=== PATIENT | female | born 1955 | race Caucasian/White ===

== ENCOUNTER 2016-10-21 14:42 | Emergency (ER) | payer OTHER ==
[~2016-10-21 14:42] MED LIST: ASPIRIN EC81 M1 PO; BIAXIN250 MG PO; KEPPRA750 M1 PO; LIPITOR80 M1 PO; NORVASC5 M1 PO; PREDNISONE20 M1 PO; PROAIR HFA8.5 GM INH; ROBITUSSIN W/CO10 ML PO; TOPROL XL100 M1 PO; TOPROL XL50 M1 PO; VIBRAMYCIN100 MG PO
[2016-10-21 14:56] VITALS: BP 162/93
--- NOTE | 2016-10-21 16:33 | ED INFLUENZA/URI COMPLAINT ---
History of Present Illness General Chief Complaint: General Adult Stated Complaint: R ARM,R LEG AND TORSO PAIN, ALSO HEAD COLD PER PT Source: patient, old records Exam Limitations: no limitations Vital Signs & Intake/Output Vital Signs & Intake/Output Vital Signs Date Time Temp Pulse Resp B/P Pulse O2 O2 Flow FiO2 Ox Delivery Rate 10/21 1456 97.1 111 16 162/93 95 Room Air Allergies Coded Allergies: MDX - Lisinopril (LISINOPRIL) (UNKNOWN 10/14/12) MDX - Peanuts (PEANUTS) (UNKNOWN 06/29/13) Reconcile Medications Albuterol Sulfate (Proair Hfa) 8.5 GM HFA.AER.AD 2 PUF INH Q4-6 PRN PRN WHEEZING Amlodipine Besylate (Norvasc) 5 MG TABLET 1 TAB PO DAILY HIGH BLOOD PRESSURE (Reported) Aspirin (Ecotrin*) 81 MG TABLET.DR 1 TAB PO BID HEART HEALTH (Reported) Atorvastatin Calcium (Lipitor) 80 MG TABLET 1 TAB PO DAILY HIGH CHOLESTROL ( Reported) Azithromycin (Zithromax) 250 MG TABLET 1 DP PO AD sinusitis 2 the first day followed by 1 for days 2-5 Clarithromycin (Biaxin) 250 MG TABLET 1 TAB PO BID PNA Doxycycline Hyclate (Vibramycin) 100 MG CAPSULE 1 CAP PO BID cellulitis Levetiracetam (Keppra) 750 MG TABLET 1 TAB PO BID SEIZURES (Reported) Metoprolol Succ XL (Toprol Xl) 50 MG TAB.ER.24H 1 TAB PO DAILY HIGH BLOOD PRESSURE (Reported) Metoprolol Succ XL (Toprol XL) 100 MG TAB.ER.24H 1 TAB PO DAILY HIGH BLOOD PRESSURE (Reported) Mometasone Furoate (Nasonex) 50 MCG SPRAY.PUMP 2 SPRAY NASB DAILY sinus Prednisone 20 MG TABLET 2 TAB PO D BRONCHITIS Robitussin AC (Guaifenesin-Codeine Syrup) 10 ML UDC 10 ML PO Q6P PRN COUGH Triage Note: TRIAGE; PT TO ED STATES SHE FEELS CONGESTED. STATES SHE FEELS ALL CLOGGED IN HER HEAD. IS ALSO HAVING PAIN TO RIGHT ARM AND RIGHT LEG. Triage Nurses Notes Reviewed? yes Onset: Gradual Duration: week(s): (1), constant Timing: recent history Severity: mild Severity Numbers: 5 Prior Episodes/Possible Cause: occassional episodes No Modifying Factors: none Associated Symptoms: cough, muscle aches, nasal congestion, nasal drainage HPI: 61-year-old female with history of CVA with residual right-sided weakness presents complaining of one-week history of nasal congestion and rhinorrhea and facial pressure nonproductive cough. She is not attempted taking any medications for the symptoms she saw care until today. No fever no chills shortness of breath chest pain abdominal pain nausea or vomiting. She is also complaining of right arm pain that she's had secondary to her stroke which was several years ago. No recent injury, no chest pain palpitations dizziness lightheadedness. She denies any rashes to her skin abdominal pain nausea or vomiting (AMPARO OAKES) Past History Travel History Traveled to [place] past 21 day No Medical History Any Pertinent Medical History? see below for history Neurological: CVA, seizure EENT: NONE Cardiovascular: hypertension, hyperlipidemia Respiratory: NONE Gastrointestinal: NONE Hepatic: NONE Renal: NONE Musculoskeletal: NONE Psychiatric: NONE Endocrine: diabetes Blood Disorders: NONE Cancer(s): NONE KITCHEN CLEANER/Reproductive: NONE Surgical History Surgical History: CABG Psychosocial History Who do you live with Son What is your primary language Georgian Family History Hx Contributory? No (AMPARO OAKES) Review of Systems Review of Systems Constitutional: Reports: see HPI. All Other Systems: Reviewed and Negative Comments Review of systems: See HPI, All other systems negative. Constitutional, no chills no fever, no malaise HEENT: No visual changes no sore throat congestion Cardiovascular: No chest pain , no palpitation Skin, no rashes, no change in skin Respiratory: No dyspnea no cough no sputum GI: No nausea no vomiting, no diarrhea, : No dysuria Muscle skeletal: No joint pain, no back pain, no neck pain, Neurologic: No numbness no headache Psych: No stress Heme/endocrine: No bruising no bleeding Immunology: No lymphadenopathy, (AMPARO OAKES) Physical Exam Physical Exam General Appearance: well developed/nourished, no apparent distress, alert, awake Ears, Nose, Throat: normal ENT inspection, moist mucous membrane Comments: Well-developed well-nourished patient in no apparent distress. Head/Face: Atraumatic, no maxillary/frontal sinus tenderness, no facial swelling Eyes: PERRL, EOMI, no conjunctival injection. No nystagmus Ear:External auditory canal and Tympanic membranes clear, no erythema, no FB. Nose: atraumatic.Normal inspection: No bleeding, no septal hematoma Throat: Moist mucous membranes.Pharynx normal. No pharyngeal erythema/exudate seen. No stridor/drooling or assymetry. No swelling or edema. Neck: Supple, no lymphadenopathy, FROM Back: FROM, Nontender Cardiovascular: Regular rate and rhythms no murmurs rubs or gallops, Respiratory: Chest nontender.There were no bony deformities, no asymmetry. No respiratory distress. Patient speaking in full complete sentences. Breath sounds clear to auscultation bilaterally: NO W/R/R Extremities: full range of motion 5 out of 5 strength bilateral upper extremities Neuro: Alert and oriented x3 Skin: Warm & dry;No appreciable rash on exposed skin Psych: Mood affect normal, normal memory normal judgment. Core Measures Severe Sepsis Present: No Septic Shock Present: No (AMPARO OAKES) Progress Differential Diagnosis: influenza, otitis, pneumonia, pharyngitis, sinusitis Plan of Care: I had an extensive conversation regarding need for close follow up with their primary care physician this week as well as return precautions. I answered all of their questions, they feel comfortable with the plan and follow-up care. I discussed the medications that they will receive with the patient. I gave them signs and symptoms that could indicate an adverse reaction. I have advised them to limit their activities until they can see how they respond to the medication. Initial ED EKG: none (AMPARO OAKES) Departure Departure Time of Disposition: 1641 Disposition: HOME OR SELF CARE Condition: Stable Clinical Impression Primary Impression: Sinusitis Referrals: JAMES ALMAGUER (PCP/Family) Additional Instructions: Follow-up with your primary care physician this week. Nasonex and azithromycin as discussed these were sent to your pharmacy. Return anytime sooner with any concerns. Tylenol or Motrin as needed for pain Departure Forms: Customer Survey General Discharge Information Prescriptions: Current Visit Scripts Azithromycin (Zithromax) 1 DP PO AD #6 TAB 2 the first day followed by 1 for days 2-5 Mometasone Furoate (Nasonex) 2 SPRAY NASB DAILY #1 INHAL (AMPARO OAKES) PA/GRILL PREP COOK Co-Sign Statement Statement: ED Attending supervision documentation- x I saw and evaluated the patient. I have also reviewed all the pertinent lab results and diagnostic results. I agree with the findings and the plan of care as documented in the PA's/GRILL PREP COOK's documentation. [] I have reviewed the ED Record and agree with the PA's/GRILL PREP COOK's documentation. [] Additions or exceptions (if any) to the PAs/GRILL PREP COOK's note and plan are summarized below: [] (LUPE SON,REGINALD)
[2016-10-21] MEDS ORDERED: ZITHROMAX250 M2 PO (16:45)
[2016-10-21] MEDS ORDERED: NASONEX17 GM NASB (16:45)
== END 2016-10-21 16:40 ==
LOC: ERH 14:42
DX: J32.9 Chronic sinusitis, unspecified (principal)